=== PATIENT | female | born 2000 | race Two or more races ===

== ENCOUNTER → 2024-11-15 | Outpatient (CLI) | payer MEDICAID, SELFPAY ==
--- NOTE | 2024-11-15 09:30 | XR_ITS ---
Examination: Upper GI series with KUB Esophagram standard Fluoroscopy 13 spot fluoroscopic films of the stomach and esophagus Exam date and time: November 15, 2024 1041 hours INDICATIONS: Preop bariatric surgery. 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
== END | disposition home or self-care (01) ==
PROVIDERS: PCP Specialist; Referring Provider Specialist; Visit Provider Specialist
DX: K21.9 Gastro-esophageal reflux disease without esophagitis (principal); Z01.818 Encounter for other preprocedural examination
CPT/HCPCS: 74240; A4699